=== PATIENT | female | born 1995 | race Two or more races ===

== ENCOUNTER → 2025-03-02 | Emergency (ER) | payer OTHER ==
[~2025-03-02] VITALS: Ht 160 cm; Wt 77.1 kg
[~2025-03-02] MED LIST: 0.9 % SODIUM CHLORIDE 500 ML IV ONE; BARIUM SULFATE 450 ML ORAL.SUSP PO ONE; LEVOTHYROXINE25 MCG; PANTOPRAZOLE SODIUM 40 MG/VIAL VIAL IV ONE; PANTOPRAZOLE SODIUM 80 MG in 0.9 % SODIUM CHLORIDE 100 ML IV SCH
[2025-03-02 15:13] LABS: BASO % 0.6 % (0.1-1.2); EOS # 0.17 (0.04-0.54); EOS % 2.6 % (0.7-7.0); LYMPH # 2.36 (1.18-3.74); LYMPH % 35.5 % (19.3-53.1); MEAN PLATELET VOLUME 9.30 fl (9.4-12.4); MONO # 0.60 (0.24-0.82); MONO % 9.0 % (4.7-12.5); NEUT # 3.46 (1.56-6.13); NEUT % 52.0 % (34.0-71.1); RED CELL DISTRIBUTION WIDTH 21.6 % (11.6-14.4)
[2025-03-02 15:37] LABS: INR 1.03
[2025-03-02 15:42] LABS: ALT/SGPT 13.0 U/L (12-78); AST/SGOT 8.0 U/L (15-37); BILIRUBIN TOTAL 0.33 mg/dL (0.3-1.2); BUN CREA RATIO 15.0 (7.0-25.0); CREATININE SERUM 0.6 mg/dL (0.55-1.02); GFR 115.85; GLOBULINA 3.6 G/DL (2.4-3.5); GLUCOSE FASTING 76.0 mg/dL (65-100); OSMOLALITY SERUM 279.0 MOSM/KG (275-295)
[2025-03-02 16:13] LABS: COVID-19 AG NEGATIVE (NEGATIVE)
[2025-03-02 16:39] LABS: URINE APPEARANCE Clear; URINE BILIRRUBIN Negative (NEGATIVE); URINE BLOOD Negative; URINE COLOR Yellow; URINE GLUCOSE Negative (NEGATIVE); URINE KETONE Negative (NEGATIVE); URINE LEUKOCYTE Negative; URINE NITRATE Negative; URINE PROTEIN Negative (NEGATIVE); URINE UROBILINOGEN 1.0 E.U./dl
[2025-03-02 16:43] LABS: URINE BACTERIA 94.7 uL (0.0-1933); URINE EPITHELIAL CELLS 7.0 uL (0.0-38.8); URINE RBC 5.7 uL (0.0-20.8); URINE WBC 2.1 uL (0.0-23.2)
[2025-03-02 17:39] LABS: TYPE CELLS SQUAMOUS; URINE CAST 0.14 uL (0.0-1.40)
[2025-03-03 14:20] LABS: BASO % 0.4 % (0.1-1.2); EOS # 0.21 (0.04-0.54); EOS % 2.6 % (0.7-7.0); LYMPH # 2.27 (1.18-3.74); LYMPH % 28.6 % (19.3-53.1); MEAN PLATELET VOLUME 9.10 fl (9.4-12.4); MONO # 0.57 (0.24-0.82); MONO % 7.2 % (4.7-12.5); NEUT # 4.83 (1.56-6.13); NEUT % 60.9 % (34.0-71.1)
[2025-03-03 14:48] LABS: RED CELL DISTRIBUTION WIDTH 30.7 % (11.6-14.4)
[2025-03-03 14:48] LABS: ob NEGATIVE (NEGATIVE)
== END | disposition left against medical advice (07) ==
LOC: ER 12:40
PROVIDERS: Emergency Medicine
DX: D64.89 Other specified anemias (principal); Z85.850 Personal history of malignant neoplasm of thyroid; Z98.84 Bariatric surgery status; Z20.822 Contact with and (suspected) exposure to COVID-19; K57.30 Diverticulosis of large intestine without perforation or abscess without bleeding
CPT/HCPCS: 36415; 36430; 74177; P9021; Q9965